=== PATIENT | female | born 1985 | race Caucasian/White ===

== ENCOUNTER 2017-05-19 22:17 | Emergency (ER) | payer MEDICARE, MEDICAID | END 2017-05-19 23:14 | disposition home or self-care (01) | LOC: D.ER 22:17 | DX: L02.416 Cutaneous abscess of left lower limb (principal); L02.415 Cutaneous abscess of right lower limb ==

== ENCOUNTER 2017-12-13 17:53 | Emergency (ER) | payer MEDICARE, MEDICAID | END 2017-12-13 21:58 | disposition home or self-care (01) | LOC: D.ER 17:53 | DX: J20.9 Acute bronchitis, unspecified (principal); J06.9 Acute upper respiratory infection, unspecified; F17.200 Nicotine dependence, unspecified, uncomplicated ==

== ENCOUNTER 2018-03-21 09:09 | Emergency (ER) | payer MEDICARE, MEDICAID | END 2018-03-21 11:01 | disposition home or self-care (01) | LOC: D.ER 09:09 | DX: S63.501A Unspecified sprain of right wrist, initial encounter (principal); W10.9XXA Fall (on) (from) unspecified stairs and steps, initial encounter; Y93.89 Activity, other specified; Y92.019 Unspecified place in single-family (private) house as the place of occurrence of the external cause; M79.1 Myalgia; F17.200 Nicotine dependence, unspecified, uncomplicated ==

== ENCOUNTER 2018-05-28 21:09 | Emergency (ER) | payer MEDICARE, MEDICAID ==
[~2018-05-28] VITALS: Ht 152.4 cm; Wt 54.5 kg
[2018-05-28 21:25] VITALS: Ht 152.4 cm; Wt 54.5 kg
[2018-05-28] MEDS ORDERED: ZITHROMAX250 MG PO (23:24)
[2018-05-29 00:13] VITALS: BP 133/78
== END 2018-05-29 00:14 | disposition home or self-care (01) ==
LOC: D.ER 21:09
DX: J01.90 Acute sinusitis, unspecified (principal); M32.9 Systemic lupus erythematosus, unspecified